=== PATIENT | male | born 1995 | race Caucasian/White ===

== ENCOUNTER 2020-03-11 12:24 | Emergency (ER) | payer OTHER, SELFPAY ==
[2020-03-11 12:25] VITALS: BP 139/86; PULSE 109; RESP 18; TEMP 37.2; O2SAT 96; BMI 37.8
[2020-03-11 12:29] VITALS: BP 139/86; PULSE 97; O2SAT 94
[2020-03-11 12:32] VITALS: PULSE 95
[2020-03-11 13:00] VITALS: PULSE 82; RESP 17; O2SAT 97
--- NOTE | 2020-03-11 13:04 | ED.GIBLEED ---
HPI - GI Bleed <NAEL Lau - Last Filed: 03/11/20 14:41> General Chief complaint: GI Bleed Stated complaint: nausea and vomitng Time Seen by Provider: 03/11/20 12:45 Source: patient Mode of arrival: Ambulatory Limitations: no limitations History of Present Illness HPI Narrative: This is a 24 year male, smoker, who has medical history significant for alcohol abuse presents to ED with chief complain of throwing up alot of blood this morning. Patient reports he has drinking issues and drinks about 26-30 oz of hard liquer daily for about 2 years. Patient had inpatient treatment in 2017 and sober for 16 months and since then has relapsed. He reports feeling dehydrated this morning when he woke up with feeling of hang over and took some electrolyte drink before had upper GI bleed this morning. Patient reports toilet bowl was filled with blood after he had projectile vomit. Patient reports epigastric mild epigastric discomfort and lightheadedness. He denies nausea, chest pain, dyspnea. Patient reports had small amount of vomiting blood a couple of times in the past. Patient is seeking an appointment with psychologist and inpatient treatment they his arranging this with [facility]. Related Data Previous Rx's Medication Instructions Recorded ondansetron 4 mg PO BID-TID PRN #10 tab 03/11/20 pantoprazole [Protonix] 20 mg PO DAILY #14 tab 03/11/20 Allergies Allergy/AdvReac Type Severity Reaction Status Date / Time No Known Allergies Allergy Verified 03/11/20 13:07 Review of Systems <NAEL Lau - Last Filed: 03/11/20 14:41> Review of Systems Narrative: General: Denies fever, chills, fatigue, malaise, sweats. HEENT: Denies sinus pain, ear pain, sore throat, difficulty swallowing, dizziness. Respiratory: Denies dyspnea, cough, wheezing, hemoptysis, sputum. Cardiovascular: Denies chest pain, palpitations, orthopnea, edema, (+) lightheaded. Gastrointestinal: See HPI : Denies dysuria, frequency, incontinence, hematuria, urinary retention. Musculoskeletal: Denies weakness, joint pain or bony pain. Skin: Denies rash, skin lesions, or other. Neurologic: Denies weakness, headache, numbness, change in speech, confusion, seizures, incoordination. Psychiatric: No concerning psychosocial issues. 12-point review of systems is negative except for those stated above. Patient History <NAEL Lau - Last Filed: 03/11/20 14:41> Medical History Alcohol dependency (Acute) Social History Smoking Status: Current every day smoker Smoking Status: Current every day smoker alcohol intake frequency: 3 or more drinks per day Substance Use Type: marijuana Exam <NAEL Lau - Last Filed: 03/11/20 14:41> Narrative Exam Narrative: GEN: Alert, oriented x 3, well appearing and nourished, and in no acute distress. Head: Normal cephalic, atraumatic. No scalp or temporal tenderness, palpable mass or rash. EYES: Pupils are equal, round, and reactive to light and accommodation. Extraocular muscles are intact bilaterally. There is no subconjunctival hemorrhage, exudate and sclera non-icteric. ENT: Bilateral auditory canals and tympanic membranes clear. Hearing grossly intact. Nose without bleeding, purulent discharge or deviation. Facial sinuses nontender to palpate. Mucous membrane moist, no mucosal lesion. Throat without erythema, tonsillar hypertrophy or exudate. Uvula in midline, airway patent. Neck: Trachea in midline. No JVD, non-tender without lymphadenopathy. No masses or thyroid megaly. Supple, non-tender and no meningeal signs. CARDIAC: Normal regular rate and rhythm without murmurs, gallops, or rubs. No chest wall tenderness. No peripheral edema, cyanosis or pallor. Capillary refill is less than 2 seconds. RESPIRATORY: Lungs are clear to auscultate bilaterally. No cough, wheezes, rales, or rhonchi. No stridor, respiratory distress, increase work of breathing, or accessary muscle used. ABD: Abdomen soft and non-distended. Epigastric tenderness to palpate. No guarding or rebound tenderness to palpate. Bowel sounds are normal in all 4 quadrants. There is no palpable masses or organomegaly. EXT: Full painless ROM of all extremities with no loss of sensation, strength, effusion or edema. SKIN: Warm, dry, normal color for patient. No erythema, lesions or rash over visible areas. BACK: Nontender without deformity or crepitance. No flank tenderness. NEUROLOGICAL: Alert and oriented to place, time and person. Sensation and motor function intact bilaterally. No facial droops, dysphasia. PSYCHIATRIC: Good judgement and reason, without hallucinations, abnormal affect or abnormal behaviors during the examination. Patient is not suicidal. Initial Vital Signs Initial Vital Signs: Vital Signs Temperature 98.9 F 03/11/20 12:25 Pulse Rate 109 H 03/11/20 12:25 Respiratory Rate 18 03/11/20 12:25 Blood Pressure 139/86 03/11/20 12:25 Pulse Oximetry 96 03/11/20 12:25 <Susan Barr DO - Last Filed: 03/23/20 07:29> Initial Vital Signs Initial Vital Signs: Vital Signs Temperature 98.9 F 03/11/20 12:25 Pulse Rate 109 H 03/11/20 12:25 Respiratory Rate 18 03/11/20 12:25 Blood Pressure 139/86 03/11/20 12:25 Pulse Oximetry 96 03/11/20 12:25 Scores <Ramone DasilvaTINO VallesP - Last Filed: 03/11/20 14:41> GCS Mary coma scale eye opening: Spontaneous [place] coma scale verbal response: Orientated [place] coma scale motor response: Obey commands Mary coma scale total score: 15 Course <[facility] - Last Filed: 03/11/20 14:41> Orders Ordered: Discontinued Medications Sodium Chloride (Normal Saline 0.9%) 1,000 mls @ 150 mls/hr IV CONT JACOB Last Admin: 03/11/20 13:16 Dose: 150 mls/hr Documented by: WILFREDO Ondansetron HCl (Zofran) 4 mg IV NOW ONE Stop: 03/11/20 13:48 Last Admin: 03/11/20 14:08 Dose: 4 mg Documented by: WILFREDO Pantoprazole Sodium (Protonix) 40 mg IV NOW ONE Stop: 03/11/20 13:01 Last Admin: 03/11/20 13:16 Dose: 40 mg Documented by: WILFREDO Reevaluation(s) Reevaluation #1: Patient was able to tolerate water without nausea and further vomiting. Patient reports improved epigastric discomfort after fluids and IV protonix. Discussed unremarkable lab test results with patient. Time: 14:34 Vital Signs Vital signs: Vital Signs - 8 hr 03/11/20 12:25 03/11/20 12:29 03/11/20 12:32 Temperature 98.9 F Pulse Rate 109 H 97 H 95 H Respiratory Rate 18 Blood Pressure 139/86 139/86 Pulse Oximetry 96 94 03/11/20 13:00 03/11/20 13:30 Temperature Pulse Rate 82 76 Respiratory Rate 17 19 Blood Pressure Pulse Oximetry 97 100 <Susan Barr DO - Last Filed: 03/23/20 07:29> Orders Ordered: Discontinued Medications Sodium Chloride (Normal Saline 0.9%) 1,000 mls @ 150 mls/hr IV CONT JACOB Last Admin: 03/11/20 13:16 Dose: 150 mls/hr Documented by: WILFREDO Ondansetron HCl (Zofran) 4 mg IV NOW ONE Stop: 03/11/20 13:48 Last Admin: 03/11/20 14:08 Dose: 4 mg Documented by: WILFREDO Pantoprazole Sodium (Protonix) 40 mg IV NOW ONE Stop: 03/11/20 13:01 Last Admin: 03/11/20 13:16 Dose: 40 mg Documented by: WILFREDO Vital Signs Vital signs: Vital Signs - 8 hr 03/11/20 12:25 03/11/20 12:29 03/11/20 12:32 Temperature 98.9 F Pulse Rate 109 H 97 H 95 H Respiratory Rate 18 Blood Pressure 139/86 139/86 Pulse Oximetry 96 94 03/11/20 13:00 03/11/20 13:30 Temperature Pulse Rate 82 76 Respiratory Rate 17 19 Blood Pressure Pulse Oximetry 97 100 MDM - GI Bleed <NAEL Lau - Last Filed: 03/11/20 14:41> Differential Diagnosis Differential diagnosis: Likely esophageal varices, gastritis, Heaven-Burton syndrome and Upper gastrointestinal hemorrhage Medical Records Attestation: I reviewed the patient's medical records. Lab Data Attestation: I reviewed the patient's lab results. Result diagrams: 03/11/20 13:00 03/11/20 13:00 Labs: Lab Results 03/11/20 03/11/20 03/11/20 Range/Units 13:00 13:00 13:00 WBC 5.0 (4.5-11.0) X10^3/uL RBC 4.48 L (4.5-5.9) X10^6/uL Hgb 14.6 (13.5-17.5) g/dL Hct 41.9 (41-53) % MCV 93.6 (80-100) fL MCH 32.5 (26-34) PG MCHC 34.8 (30-36) % RDW 12.1 (11.6-14.8) % Plt Count 209 (150-400) X10^3/uL Neut % (Auto) 58.9 (50-75) % Lymph % (Auto) 25.8 (25-40) % [place] % (Auto) 9.9 (3-14) % Eos % (Auto) 4.9 H (2-4) % Baso % (Auto) 0.5 (0-2) % Neut # (Auto) 3000 (5198-7519) /uL Lymph # (Auto) 1300 (6159-3592) /uL [place] # (Auto) 500 (0-900) /uL Eos # (Auto) 200 (0-450) /uL Baso # (Auto) 0 (0-100) /uL PT 10.6 (10.1-12.7) SECONDS INR 0.9 (0.9-1.3) APTT 33 (26.4-36.2) SECONDS Sodium 143 (137-145) mmol/L Potassium 4.4 (3.4-5.1) mmol/L Chloride 107 (98-107) mmol/L Carbon Dioxide 28 (22-32) mmol/L BUN 15 (9-20) mg/dL Creatinine 0.69 (0.66-1.25) mg/dL Estimated GFR > 60.0 (>60) mL/min BUN/Creatinine Ratio 21.7 (6-22) Glucose 102 H (70-100) mg/dL Calcium 9.2 (8.4-10.2) mg/dL Magnesium 1.9 (1.6-2.3) mg/dL Total Bilirubin 0.4 (0.2-1.3) mg/dL Conjugated Bilirubin 0.0 (0.0-0.3) md/dL Unconjugated Bilirubin 0.2 (0.0-1.1) mg/dL AST 44 (17-59) IU/L ALT 87 H (<50) IU/L Alkaline Phosphatase 62 (38-126) U/L Total Protein 7.7 (6.3-8.2) g/dL Albumin 4.5 (3.5-5.0) g/dL Globulin 3.2 (1.7-4.1) g/dL Albumin/Globulin Ratio 1.4 (1.0-2.8) Lipase 69 (23-300) U/L Blood Type Antibody Screen 03/11/20 Range/Units 13:00 WBC (4.5-11.0) X10^3/uL RBC (4.5-5.9) X10^6/uL Hgb (13.5-17.5) g/dL Hct (41-53) % MCV (80-100) fL MCH (26-34) PG MCHC (30-36) % RDW (11.6-14.8) % Plt Count (150-400) X10^3/uL Neut % (Auto) (50-75) % Lymph % (Auto) (25-40) % [place] % (Auto) (3-14) % Eos % (Auto) (2-4) % Baso % (Auto) (0-2) % Neut # (Auto) (0921-0375) /uL Lymph # (Auto) (3088-3473) /uL [place] # (Auto) (0-900) /uL Eos # (Auto) (0-450) /uL Baso # (Auto) (0-100) /uL PT (10.1-12.7) SECONDS INR (0.9-1.3) APTT (26.4-36.2) SECONDS Sodium (137-145) mmol/L Potassium (3.4-5.1) mmol/L Chloride (98-107) mmol/L Carbon Dioxide (22-32) mmol/L BUN (9-20) mg/dL Creatinine (0.66-1.25) mg/dL Estimated GFR (>60) mL/min BUN/Creatinine Ratio (6-22) Glucose (70-100) mg/dL Calcium (8.4-10.2) mg/dL Magnesium (1.6-2.3) mg/dL Total Bilirubin (0.2-1.3) mg/dL Conjugated Bilirubin (0.0-0.3) md/dL Unconjugated Bilirubin (0.0-1.1) mg/dL AST (17-59) IU/L ALT (<50) IU/L Alkaline Phosphatase (38-126) U/L Total Protein (6.3-8.2) g/dL Albumin (3.5-5.0) g/dL Globulin (1.7-4.1) g/dL Albumin/Globulin Ratio (1.0-2.8) Lipase (23-300) U/L Blood Type O Positive Antibody Screen Negative MDM Narrative Medical decision making narrative: This is a 24-year-old male who drinks about 30 oz of hard liquor daily presents to ED with chief complain of 1 episode of vomiting blood with the forceful/projectile vomit this morning with some lightheadedness and epigastric discomfort. Patient is stable H&H with within normal vital signs. No signs of jaundice and unremarkable physical exam except some tenderness to palpate in epigastric region. Patient is able to tolerate fluids without further vomiting for GI bleed. Normal platelet counts. Normal coags. Unremarkable chemistry test without signs of dehydration. Mild elevation in ALT of 87. Normal bilirubin and lipase. Patient was medicated with IV fluid, Zofran, Protonix and felt improved. It is likely patient had Heaven-Burton tear as he describes as forceful vomit before vomiting blood and has gastritis from heavy alcohol use daily. [facility]. Patient advised to decrease/stop using heavy alcohol daily and [facility]. Strict return precautions were discussed with patient and he verbalized understanding in agreement with treatment plan. Patient discharged to home with Protonix for 2 week duration. <Susan Barr, DO - Last Filed: 03/23/20 07:29> Lab Data Labs: Lab Results 03/11/20 03/11/20 03/11/20 Range/Units 13:00 13:00 13:00 WBC 5.0 (4.5-11.0) X10^3/uL RBC 4.48 L (4.5-5.9) X10^6/uL Hgb 14.6 (13.5-17.5) g/dL Hct 41.9 (41-53) % MCV 93.6 (80-100) fL MCH 32.5 (26-34) PG MCHC 34.8 (30-36) % RDW 12.1 (11.6-14.8) % Plt Count 209 (150-400) X10^3/uL Neut % (Auto) 58.9 (50-75) % Lymph % (Auto) 25.8 (25-40) % [place] % (Auto) 9.9 (3-14) % Eos % (Auto) 4.9 H (2-4) % Baso % (Auto) 0.5 (0-2) % Neut # (Auto) 3000 (4720-1295) /uL Lymph # (Auto) 1300 (7952-1750) /uL [place] # (Auto) 500 (0-900) /uL Eos # (Auto) 200 (0-450) /uL Baso # (Auto) 0 (0-100) /uL PT 10.6 (10.1-12.7) SECONDS INR 0.9 (0.9-1.3) APTT 33 (26.4-36.2) SECONDS Sodium 143 (137-145) mmol/L Potassium 4.4 (3.4-5.1) mmol/L Chloride 107 (98-107) mmol/L Carbon Dioxide 28 (22-32) mmol/L BUN 15 (9-20) mg/dL Creatinine 0.69 (0.66-1.25) mg/dL Estimated GFR > 60.0 (>60) mL/min BUN/Creatinine Ratio 21.7 (6-22) Glucose 102 H (70-100) mg/dL Calcium 9.2 (8.4-10.2) mg/dL Magnesium 1.9 (1.6-2.3) mg/dL Total Bilirubin 0.4 (0.2-1.3) mg/dL Conjugated Bilirubin 0.0 (0.0-0.3) md/dL Unconjugated Bilirubin 0.2 (0.0-1.1) mg/dL AST 44 (17-59) IU/L ALT 87 H (<50) IU/L Alkaline Phosphatase 62 (38-126) U/L Total Protein 7.7 (6.3-8.2) g/dL Albumin 4.5 (3.5-5.0) g/dL Globulin 3.2 (1.7-4.1) g/dL Albumin/Globulin Ratio 1.4 (1.0-2.8) Lipase 69 (23-300) U/L Blood Type Antibody Screen 03/11/20 Range/Units 13:00 WBC (4.5-11.0) X10^3/uL RBC (4.5-5.9) X10^6/uL Hgb (13.5-17.5) g/dL Hct (41-53) % MCV (80-100) fL MCH (26-34) PG MCHC (30-36) % RDW (11.6-14.8) % Plt Count (150-400) X10^3/uL Neut % (Auto) (50-75) % Lymph % (Auto) (25-40) % [place] % (Auto) (3-14) % Eos % (Auto) (2-4) % Baso % (Auto) (0-2) % Neut # (Auto) (4936-8765) /uL Lymph # (Auto) (7770-3222) /uL [place] # (Auto) (0-900) /uL Eos # (Auto) (0-450) /uL Baso # (Auto) (0-100) /uL PT (10.1-12.7) SECONDS INR (0.9-1.3) APTT (26.4-36.2) SECONDS Sodium (137-145) mmol/L Potassium (3.4-5.1) mmol/L Chloride (98-107) mmol/L Carbon Dioxide (22-32) mmol/L BUN (9-20) mg/dL Creatinine (0.66-1.25) mg/dL Estimated GFR (>60) mL/min BUN/Creatinine Ratio (6-22) Glucose (70-100) mg/dL Calcium (8.4-10.2) mg/dL Magnesium (1.6-2.3) mg/dL Total Bilirubin (0.2-1.3) mg/dL Conjugated Bilirubin (0.0-0.3) md/dL Unconjugated Bilirubin (0.0-1.1) mg/dL AST (17-59) IU/L ALT (<50) IU/L Alkaline Phosphatase (38-126) U/L Total Protein (6.3-8.2) g/dL Albumin (3.5-5.0) g/dL Globulin (1.7-4.1) g/dL Albumin/Globulin Ratio (1.0-2.8) Lipase (23-300) U/L Blood Type O Positive Antibody Screen Negative Discharge Plan Departure Patient Disposition: Home Clinical Impression: Heaven-Burton tear Gastritis Qualifiers: Gastritis type: alcoholic Chronicity: acute Gastritis bleeding: with bleeding Qualified Code(s): K29.21 - Alcoholic gastritis with bleeding Discharge Date/Time: 03/11/20 15:34 Instructions: DI for Alcoholic Gastritis Activity Restrictions/Additional Instructions: You have been diagnosed with [gastritis and likely bleed from Heaven Burton tear with forceful vomit. Please take Protonix once a day for next couple of weeks. Please take on then stone/Zofran as needed for nausea to hydrate yourself adequately with small sips frequently. Please avoid alcohol drinks.]. What to do: *Take your medications as directed. This medication have been transmitted to [facility] in [place]. *Follow up with your primary care provider in 2-3 days, call for an appointment. Let them know you were seen in the ED and that we asked you to be seen in follow up. In the near future, endoscopy is recommended out patiently. Please follow-up with counseling service an outpatient treatment for alcohol dependence as you planned. *Return to ED if you have any new, worsening, or concerning symptoms, such as [chest pain, breathing difficulty, lightheadedness, further vomiting blood specially without after forceful vomit, fever, able to tolerate fluids or any acute concerns]. Prescriptions: New pantoprazole [Protonix] 20 mg tablet,delayed release (DR/EC) 20 mg PO DAILY Qty: 14 RF: 0 ondansetron 4 mg tablet,disintegrating 4 mg PO BID-TID PRN (Reason: nausea and vomiting) Qty: 10 RF: 0 Referrals: [facility] [Outside] <Susan Barr DO - Last Filed: 03/23/20 07:29> Cosign ED Attending Lazaro Attestation: I was immediately available in the department for consultation. Documentation has been reviewed. I agree with assessment and plan.
[2020-03-11 13:12] LABS: Add Manual Diff / Slide Review NO; Basophils Absolute Auto 0 /uL (0-100); Basophils Percent Auto 0.5 % (0-2); Eosinophils Absolute Auto 200 /uL (0-450); Eosinophils Percent Auto 4.9 % (2-4); Hematocrit 41.9 % (41-53); Hemoglobin 14.6 g/dL (13.5-17.5); Lymphocytes Absolute Auto 1300 /uL (1100-4500); Lymphocytes Percent Auto 25.8 % (25-40); Mean Corpuscular HGB Conc 34.8 % (30-36); Mean Corpuscular Hemoglobin 32.5 PG (26-34); Mean Corpuscular Volume 93.6 fL (80-100); Monocytes Absolute Auto 500 /uL (0-900); Monocytes Percent Auto 9.9 % (3-14); Neutrophils Absolute Auto 3000 /uL (1500-7000); Neutrophils Percent Auto 58.9 % (50-75); Platelet Count 209 X10^3/uL (150-400); Red Blood Cell Count 4.48 X10^6/uL (4.5-5.9); Red Cell Distribution Width 12.1 % (11.6-14.8)
[2020-03-11] MEDS: SODIUM CHLORIDE 0.9% 1,000 ML 150 ML IV (13:16)
[2020-03-11] MEDS: PANTOPRAZOLE 40 MG VIAL IV (13:16)
[2020-03-11 13:18] LABS: INR 0.9 (0.9-1.3); Prothrombin Time 10.6 SECONDS (10.1-12.7)
[2020-03-11 13:21] LABS: PTT Partial Thromboplastin Tim 33 SECONDS (26.4-36.2)
[2020-03-11 13:23] LABS: Alanine Aminotransferase 87 IU/L (<50); Albumin 4.5 g/dL (3.5-5.0); Albumin Globulin Ratio 1.4 (1.0-2.8); Alkaline Phosphatase 62 U/L (38-126); Aspartate Aminotransferase 44 IU/L (17-59); BUN Creatinine Ratio 21.7 (6-22); Bilirubin Total 0.4 mg/dL (0.2-1.3); Bilirubin Unconjugated 0.2 mg/dL (0.0-1.1); Blood Urea Nitrogen 15 mg/dL (9-20); Calcium 9.2 mg/dL (8.4-10.2); Carbon Dioxide 28 mmol/L (22-32); Chloride 107 mmol/L (98-107); Estimated Glomerular Filt Rate > 60.0 mL/min (>60); Globulin 3.2 g/dL (1.7-4.1); Glucose 102 mg/dL (70-100); HEMOLYSIS < 15 (0-50); Lipase 69 U/L (23-300); Magnesium 1.9 mg/dL (1.6-2.3); Potassium 4.4 mmol/L (3.4-5.1); Sodium 143 mmol/L (137-145); Total Protein 7.7 g/dL (6.3-8.2)
[2020-03-11 13:30] VITALS: PULSE 76; RESP 19; O2SAT 100
[2020-03-11] MEDS: ONDANSETRON 4 MG/2 ML INJ IV (14:08)
[2020-03-11 14:39] VITALS: BP 114/75; PULSE 74; RESP 16; O2SAT 100
== END 2020-03-11 15:34 | disposition home or self-care (01) ==
PROVIDERS: Emergency Provider Nurse Practitioner Family
DX: K22.6 Gastro-esophageal laceration-hemorrhage syndrome (principal); K29.21 Alcoholic gastritis with bleeding; R10.13 Epigastric pain; R42 Dizziness and giddiness
CPT/HCPCS: 36415; 80053; 80076; 83690; 83735; 85025; 85610; 85730; 86850; 86900; 86901; 96374; 96375; 99284; C9113; J2405

== ENCOUNTER 2020-03-26 16:17 | Emergency (ER) | payer OTHER, SELFPAY ==
[2020-03-26 16:24] VITALS: BP 112/71; PULSE 111; RESP 24; TEMP 36.2; O2SAT 99
--- NOTE | 2020-03-26 16:32 | ED_ITS ---
HPI - Nausea/Vomiting/Diarrhea <Janene Sellers DO - Last Filed: 03/27/20 07:07> General Chief complaint: Nausea/Vomiting/Diarrhea Stated complaint: Vomiting Time Seen by Provider: 03/26/20 16:31 Source: patient and old records reviewed Mode of arrival: Ambulatory Limitations: no limitations History of Present Illness HPI Narrative: This is a 24-year-old male who comes to the emergency department complaint of nausea vomiting. Patient states that he was here about 2 weeks ago, he had bright red emesis and is now alcoholic. He quit drinking alcohol at that time and had remains sober until last night. Patient states he drinks a small bottle of [employer] of vodka. Blacked out and had vomiting today. He has not really been able to keep any fluids down. He is quite upset with himself t hat he was not able to remain sober. He is scheduled to go into treatment on . He does not currently have any abdominal pain. He states that his head feels ?messed up? when I asked specifically if he is suicidal or depressed he denies this but states that he just is messed up in the had and that is making him drink. He has continued to use marijuana regularly. He states he did not know any blood in his emesis. He has not had any black stools. He is not sure if he is having any withdrawal but he has felt a little bit shaky today. Related Data Previous Rx's Medication Instructions Recorded ondansetron 4 mg PO BID-TID PRN #10 tab 03/11/20 pantoprazole [Protonix] 20 mg PO DAILY #14 tab 03/11/20 Allergies Allergy/AdvReac Type Severity Reaction Status Date / Time No Known Allergies Allergy Verified 03/11/20 13:07 Review of Systems <Janene Sellers DO - Last Filed: 03/27/20 07:07> Review of Systems ROS Unobtainable: All systems reviewed & are unremarkable except as noted in HPI and below Patient History <Jnaene Sellers DO - Last Filed: 03/27/20 07:07> Medical History (Updated 03/26/20 @ 17:36 by Janene Sellers DO) Alcohol dependency Social History Smoking Status: Current every day smoker Smoking Status: Current every day smoker alcohol intake frequency: 3 or more drinks per day Substance Use Type: marijuana Exam <Janene Sellers DO - Last Filed: 03/27/20 07:07> Narrative Exam Narrative: GENERAL: Alert and oriented x three, well-nourished male in moderate distress. HEENT: Head normocephalic, atraumatic, EOMI, eyes are injected, pupils reactive, face symmetric, moist mucous membranes NECK: Supple, full range of motion CARDIOVASCULAR: Regular rate and rhythm without murmurs, rubs or gallops. RESPIRATORY: Breath sounds equal bilaterally, no wheezes rales or rhonchi. ABDOMEN: Soft, nontender. Normoactive bowel sounds all 4 quadrants. No guarding or rebound, rigidity, no mass : No CVA tenderness EXTREMITIES: Normal range of motion, no clubbing or edema. Neurovascularly intact NEUROLOGICAL: Cranial nerves II through XII grossly intact. Moving all extremities. No tremor noted. SKIN: Warm, dry, no petechiae, no rashes or lesions. PSYCH: Denies any suicial or homicidal thoughts. Feels confused. Initial Vital Signs Initial Vital Signs: Vital Signs Temperature 97.2 F L 03/26/20 16:24 Pulse Rate 111 H 03/26/20 16:24 Respiratory Rate 24 03/26/20 16:24 Blood Pressure 112/71 03/26/20 16:24 Pulse Oximetry 99 03/26/20 16:24 <Sonido Mcmillan DO - Last Filed: 03/26/20 20:53> Initial Vital Signs Initial Vital Signs: Vital Signs Temperature 97.2 F L 03/26/20 16:24 Pulse Rate 111 H 03/26/20 16:24 Respiratory Rate 24 03/26/20 16:24 Blood Pressure 112/71 03/26/20 16:24 Pulse Oximetry 99 03/26/20 16:24 Course <Janene Sellers DO - Last Filed: 03/27/20 07:07> Orders Ordered: Discontinued Medications Sodium Chloride (Normal Saline 0.9%) 1,000 mls @ 1,000 mls/hr IV BOLUS ONE Stop: 03/26/20 17:31 Last Infusion: 03/26/20 18:17 Dose: 0 mls/hr Documented by: Admin: 03/26/20 16:59 Dose: 1,000 mls/hr Documented by: ARASH Sodium Chloride (Normal Saline 0.9%) 1,000 mls @ 1,000 mls/hr IV BOLUS ONE Stop: 03/26/20 17:45 Last Admin: 03/26/20 16:59 Dose: Not Given Documented by: ARASH Lorazepam (Lorazepam 2 Mg/Ml Inj) 0.5 mg IV NOW ONE Stop: 03/26/20 16:47 Last Admin: 03/26/20 16:58 Dose: 0.5 mg Documented by: ARASH Ondansetron HCl (Ondansetron 4 Mg/2 Ml Inj) 4 mg IV NOW ONE Stop: 03/26/20 16:33 Last Admin: 03/26/20 16:58 Dose: 4 mg Documented by: ARASH Ondansetron HCl (Ondansetron 4 Mg/2 Ml Inj) 4 mg IV NOW ONE Stop: 03/26/20 16:47 Last Admin: 03/26/20 16:59 Dose: Not Given Documented by: ARASH Reevaluation(s) Time: 17:35 Vital Signs Vital signs: Vital Signs - 8 hr 03/26/20 16:24 03/26/20 19:16 03/26/20 19:30 Temperature 97.2 F L Pulse Rate 111 H 88 86 Respiratory Rate 24 Blood Pressure 112/71 Pulse Oximetry 99 98 97 03/26/20 20:00 Temperature Pulse Rate 92 H Respiratory Rate Blood Pressure 120/68 Pulse Oximetry 98 <Sonido Mcmillan DO - Last Filed: 03/26/20 20:53> Orders Ordered: Discontinued Medications Sodium Chloride (Normal Saline 0.9%) 1,000 mls @ 1,000 mls/hr IV BOLUS ONE Stop: 03/26/20 17:31 Last Infusion: 03/26/20 18:17 Dose: 0 mls/hr Documented by: Admin: 03/26/20 16:59 Dose: 1,000 mls/hr Documented by: ARASH Sodium Chloride (Normal Saline 0.9%) 1,000 mls @ 1,000 mls/hr IV BOLUS ONE Stop: 03/26/20 17:45 Last Admin: 03/26/20 16:59 Dose: Not Given Documented by: ARASH Lorazepam (Lorazepam 2 Mg/Ml Inj) 0.5 mg IV NOW ONE Stop: 03/26/20 16:47 Last Admin: 03/26/20 16:58 Dose: 0.5 mg Documented by: ARASH Ondansetron HCl (Ondansetron 4 Mg/2 Ml Inj) 4 mg IV NOW ONE Stop: 03/26/20 16:33 Last Admin: 03/26/20 16:58 Dose: 4 mg Documented by: ARASH Ondansetron HCl (Ondansetron 4 Mg/2 Ml Inj) 4 mg IV NOW ONE Stop: 03/26/20 16:47 Last Admin: 03/26/20 16:59 Dose: Not Given Documented by: ARASH Vital Signs Vital signs: Vital Signs - 8 hr 03/26/20 16:24 03/26/20 19:16 03/26/20 19:30 Temperature 97.2 F L Pulse Rate 111 H 88 86 Respiratory Rate 24 Blood Pressure 112/71 Pulse Oximetry 99 98 97 03/26/20 20:00 Temperature Pulse Rate 92 H Respiratory Rate Blood Pressure 120/68 Pulse Oximetry 98 MDM - Nausea/Vomiting/Diarrhea <Janene Sellers DO - Last Filed: 03/27/20 07:07> Lab Data Attestation: I reviewed the patient's lab results. Result diagrams: 03/26/20 16:34 03/26/20 16:34 Labs: Lab Results 03/26/20 03/26/20 Range/Units 16:34 16:34 WBC 8.2 (4.5-11.0) X10^3/uL RBC 4.84 (4.5-5.9) X10^6/uL Hgb 15.9 (13.5-17.5) g/dL Hct 45.3 (41-53) % MCV 93.6 (80-100) fL MCH 32.9 (26-34) PG MCHC 35.2 (30-36) % RDW 12.3 (11.6-14.8) % Plt Count 231 (150-400) X10^3/uL Neut % (Auto) 80.9 H (50-75) % Lymph % (Auto) 13.1 L (25-40) % [place] % (Auto) 5.2 (3-14) % Eos % (Auto) 0.6 L (2-4) % Baso % (Auto) 0.2 (0-2) % Neut # (Auto) 6700 (7046-0638) /uL Lymph # (Auto) 1100 (2984-8269) /uL [place] # (Auto) 400 (0-900) /uL Eos # (Auto) 100 (0-450) /uL Baso # (Auto) 0 (0-100) /uL Sodium 143 (137-145) mmol/L Potassium 4.6 (3.4-5.1) mmol/L Chloride 107 (98-107) mmol/L Carbon Dioxide 28 (22-32) mmol/L BUN 12 (9-20) mg/dL Creatinine 0.75 (0.66-1.25) mg/dL Estimated GFR > 60.0 (>60) mL/min BUN/Creatinine Ratio 16.0 (6-22) Glucose 114 H (70-100) mg/dL Calcium 9.4 (8.4-10.2) mg/dL Total Bilirubin 0.5 (0.2-1.3) mg/dL AST 38 (17-59) IU/L ALT 75 H (<50) IU/L Alkaline Phosphatase 65 (38-126) U/L Total Protein 8.5 H (6.3-8.2) g/dL Albumin 5.2 H (3.5-5.0) g/dL Globulin 3.3 (1.7-4.1) g/dL Albumin/Globulin Ratio 1.6 (1.0-2.8) Lipase 65 (23-300) U/L Ethyl Alcohol 124 H ( - 10) mg/dL Imaging Data CT scan - head: Radiologist's Impression: [address] [id number] Scan ReportSigned Patient: Darron Smith JMR#: [id number]: [id number]:[id number]/Sex: 24 / MDate of Service: 03/26/20Loc: EDAccession Number: [id number] Procedure: CT head/brain wo con Ordering Provider: Janene Sellers D.O. PROCEDURE: CT HEAD/BRAIN WO CON INDICATIONS: etoh use, blacked out, ? trauma TECHNIQUE: Noncontrast 4.5 mm thick angled axial sections acquired from the foramen magnum to the vertex, with coronal and sagittal reformats. For radiation dose reduction, the following was used: automated exposure control, adjustment of mA and/or kV according to patient size. COMPARISON: None. FINDINGS: Image quality: Excellent. CSF spaces: Basal cisterns are patent. No extra-axial fluid collections. Ventricles are normal in size and shape. Brain: No midline shift. No intracranial masses or hemorrhage. Thompson-white matter interface is normal. Skull and face: Calvarium and visualized facial bones are intact, without suspicious lesions. Sinuses: Moderate mucosal thickening is seen within the paranasal sinuses, which is worst within the ethmoid air cells. No abnormal fluid is seen within the mastoid air cells. IMPRESSION: No acute intracranial process is seen. No acute intracranial hemorrhage is seen. Paranasal sinus disease noted. Dictated by: Khai Garvey M.D. on 03/26/2020 at 16:10 Approved by: Khai Garvey M.D. on 03/26/2020 at 16:11 [facility] Narrative Medical decision making narrative: Patient given IV fluids, zofran and ativan IV. Patient has not had any hematemesis but labs were repeated. On re- evaluation patient is feeling better but sleepy. Plan to monitor and either d/c home or offer detox at [facility] for short term if beds available. CIWA is 7. Signed out to Dr. Mcmillan while pending. Patient is scheduled to go to inpatient facility on through the [facility]. <Sonido Mcmillan, DO - Last Filed: 03/26/20 20:53> Lab Data Labs: Lab Results 03/26/20 03/26/20 Range/Units 16:34 16:34 WBC 8.2 (4.5-11.0) X10^3/uL RBC 4.84 (4.5-5.9) X10^6/uL Hgb 15.9 (13.5-17.5) g/dL Hct 45.3 (41-53) % MCV 93.6 (80-100) fL MCH 32.9 (26-34) PG MCHC 35.2 (30-36) % RDW 12.3 (11.6-14.8) % Plt Count 231 (150-400) X10^3/uL Neut % (Auto) 80.9 H (50-75) % Lymph % (Auto) 13.1 L (25-40) % [place] % (Auto) 5.2 (3-14) % Eos % (Auto) 0.6 L (2-4) % Baso % (Auto) 0.2 (0-2) % Neut # (Auto) 6700 (3332-3915) /uL Lymph # (Auto) 1100 (5786-6164) /uL [place] # (Auto) 400 (0-900) /uL Eos # (Auto) 100 (0-450) /uL Baso # (Auto) 0 (0-100) /uL Sodium 143 (137-145) mmol/L Potassium 4.6 (3.4-5.1) mmol/L Chloride 107 (98-107) mmol/L Carbon Dioxide 28 (22-32) mmol/L BUN 12 (9-20) mg/dL Creatinine 0.75 (0.66-1.25) mg/dL Estimated GFR > 60.0 (>60) mL/min BUN/Creatinine Ratio 16.0 (6-22) Glucose 114 H (70-100) mg/dL Calcium 9.4 (8.4-10.2) mg/dL Total Bilirubin 0.5 (0.2-1.3) mg/dL AST 38 (17-59) IU/L ALT 75 H (<50) IU/L Alkaline Phosphatase 65 (38-126) U/L Total Protein 8.5 H (6.3-8.2) g/dL Albumin 5.2 H (3.5-5.0) g/dL Globulin 3.3 (1.7-4.1) g/dL Albumin/Globulin Ratio 1.6 (1.0-2.8) Lipase 65 (23-300) U/L Ethyl Alcohol 124 H ( - 10) mg/dL [facility] Narrative Medical decision making narrative: Dr mcmillan: Received turned over from Dr sellers. Patient did admit to drinking alcohol today. His alcohol level was elevated. He did receive 1 dose of Ativan. Has been sleeping since then. I reviewed patient's labs. Evaluated the patient independently. Patient no longer tachycardic. No longer shaking. Is alert and oriented. Had a discussion with him regarding his options to include being transferred to a detox facility versus being discharged home. He already has a follow-up on scheduled for inpatient alcohol rehab. After this discussion patient stated that he would rather just go home. He stated that he felt safe going home. He had his roommate come and pick him up. He was informed that he could return to the emergency department at any point if needed. Discharge Plan Departure Patient Disposition: Home Clinical Impression: Alcohol abuse Vomiting Qualifiers: Vomiting Intractability: non-intractable Nausea presence: with nausea Instructions: DI for Alcohol Use Disorder Activity Restrictions/Additional Instructions: No driving for the next 24 hours. I do recommend that you keep your appointment on with your alcohol rehab appointment. You can return to the emergency department any point for new or worsening symptoms. Prescriptions: No Action pantoprazole [Protonix] 20 mg tablet,delayed release (DR/EC) 20 mg PO DAILY Qty: 14 RF: 0 ondansetron 4 mg tablet,disintegrating 4 mg PO BID-TID PRN (Reason: nausea and vomiting) Qty: 10 RF: 0
--- NOTE | 2020-03-26 16:50 | DI.CT.S_ITS ---
PROCEDURE: CT HEAD/BRAIN WO CON INDICATIONS: etoh use, blacked out, ? trauma TECHNIQUE: Noncontrast 4.5 mm thick angled axial sections acquired from the foramen magnum to the vertex, with coronal and sagittal reformats. For radiation dose reduction, the following was used: automated exposure control, adjustment of mA and/or kV according to patient size. COMPARISON: None. FINDINGS: Image quality: Excellent. CSF spaces: Basal cisterns are patent. No extra-axial fluid collections. Ventricles are normal in size and shape. Brain: No midline shift. No intracranial masses or hemorrhage. Thompson-white matter interface is normal. Skull and face: Calvarium and visualized facial bones are intact, without suspicious lesions. Sinuses: Moderate mucosal thickening is seen within the paranasal sinuses, which is worst within the ethmoid air cells. No abnormal fluid is seen within the mastoid air cells. IMPRESSION: No acute intracranial process is seen. No acute intracranial hemorrhage is seen. Paranasal sinus disease noted. Dictated by: Khai Garvey M.D. on 03/26/2020 at 16:10 Approved by: Khai Garvey M.D. on 03/26/2020 at 16:11
[2020-03-26] MEDS: LORazepam 2 MG/ML INJ 0.5 MG IV (16:58)
[2020-03-26] MEDS: ONDANSETRON 4 MG/2 ML INJ IV (16:58)
[2020-03-26 16:59] LABS: Add Manual Diff / Slide Review NO; Basophils Absolute Auto 0 /uL (0-100); Basophils Percent Auto 0.2 % (0-2); Eosinophils Absolute Auto 100 /uL (0-450); Eosinophils Percent Auto 0.6 % (2-4); Hematocrit 45.3 % (41-53); Hemoglobin 15.9 g/dL (13.5-17.5); Lymphocytes Absolute Auto 1100 /uL (1100-4500); Lymphocytes Percent Auto 13.1 % (25-40); Mean Corpuscular HGB Conc 35.2 % (30-36); Mean Corpuscular Hemoglobin 32.9 PG (26-34); Mean Corpuscular Volume 93.6 fL (80-100); Monocytes Absolute Auto 400 /uL (0-900); Monocytes Percent Auto 5.2 % (3-14); Neutrophils Absolute Auto 6700 /uL (1500-7000); Neutrophils Percent Auto 80.9 % (50-75); Platelet Count 231 X10^3/uL (150-400); Red Blood Cell Count 4.84 X10^6/uL (4.5-5.9); Red Cell Distribution Width 12.3 % (11.6-14.8); White Blood Cell Count 8.2 X10^3/uL (4.5-11.0)
[2020-03-26] MEDS: SODIUM CHLORIDE 0.9% 1,000 ML 1000 ML IV (16:59)
[2020-03-26 17:07] LABS: Alanine Aminotransferase 75 IU/L (<50); Albumin 5.2 g/dL (3.5-5.0); Albumin Globulin Ratio 1.6 (1.0-2.8); Alkaline Phosphatase 65 U/L (38-126); Aspartate Aminotransferase 38 IU/L (17-59); Bilirubin Total 0.5 mg/dL (0.2-1.3); Blood Urea Nitrogen 12 mg/dL (9-20); Calcium 9.4 mg/dL (8.4-10.2); Carbon Dioxide 28 mmol/L (22-32); Chloride 107 mmol/L (98-107); Estimated Glomerular Filt Rate > 60.0 mL/min (>60); Ethanol (ETOH) 124 mg/dL; Globulin 3.3 g/dL (1.7-4.1); Glucose 114 mg/dL (70-100); HEMOLYSIS 16 (0-50); Lipase 65 U/L (23-300); Potassium 4.6 mmol/L (3.4-5.1); Sodium 143 mmol/L (137-145); Total Protein 8.5 g/dL (6.3-8.2)
[2020-03-26 19:16] VITALS: PULSE 88; O2SAT 98
[2020-03-26 19:30] VITALS: PULSE 86; O2SAT 97
[2020-03-26 20:00] VITALS: BP 120/68; PULSE 92; O2SAT 98
== END 2020-03-26 20:29 | disposition home or self-care (01) ==
PROVIDERS: Emergency Medicine; Emergency Provider Emergency Medicine
DX: F10.229 Alcohol dependence with intoxication, unspecified (principal); Y90.6 Blood alcohol level of 120-199 mg/100 ml; R11.2 Nausea with vomiting, unspecified
CPT/HCPCS: 36415; 70450; 80053; 80320; 83690; 85025; 96361; 96374; 96375; 99283; 99284; J2060; J2405